=== PATIENT | female | born 1990 | race Caucasian/White ===

== ENCOUNTER 2020-04-12 13:13 | Outpatient (CLI) | payer MEDICAID, SELFPAY ==
--- NOTE | 2020-04-12 13:16 | MR_ITS ---
WS: [id number] MRI CERVICAL SPINE NONCONTRAST TECHNIQUE: Sagittal T1, T2 and STIR imaging. Axial T2, gradient, and fiesta imaging. CLINICAL INFORMATION: CERVICAL REGION RADICULOPATHY COMPARISON: MRI FINDINGS: Mild cervical curve. Straightening of the normal cervical lordosis. Cord signal is normal. C2-C3: Normal. C3-C4: Normal. C4-C5: Minimal disc bulging. Mild left and no significant right foraminal narrowing. Spinal canal is patent. C5-C6: Mild osteophytic ridging. Mild left and no significant right foraminal narrowing. Spinal canal is patent. C6-C7: No significant disc bulging. Mild facet arthropathy. Spinal canal and foramen are patent. C7-T1: Normal. T1-T2: Normal. Visualized brain stem structures: Normal. Prevertebral soft tissues: Normal. MR/MR cervical spin wo con* [id number] IMPRESSION: 1. Straightening of the normal cervical lordosis. Cord signal is normal. 2. Mild disc osteophytic ridging C4-C5 with mild left foraminal narrowing. 3. Mild left bony foraminal narrowing C5-C6. 4. Mild facet arthropathy right C6-C7. 5. No significant changes since December 29, 2017
--- NOTE | 2020-04-12 13:45 | XR_ITS ---
WS: [id number] CERVICAL SPINE TECHNIQUE: 3 views of the cervical spine CLINICAL INFORMATION: cervical pain COMPARISON: None. FINDINGS: Straightening of the normal cervical lordosis. Mild cervical curve convex left. Normal C1-C2 articula tion. Normal prevertebral soft tissues. XR/XR cervical spine 3V* [id number] IMPRESSION: Unremarkable cervical spine
== END 2020-04-12 13:14 | disposition home or self-care (01) ==
PROVIDERS: Family Provider Registered Nurse; PCP Registered Nurse; Visit Provider Registered Nurse
DX: M54.2 Cervicalgia (principal); M54.12 Radiculopathy, cervical region; M25.78 Osteophyte, vertebrae; M47.892 Other spondylosis, cervical region
CPT/HCPCS: 72040; 72141

== ENCOUNTER → 2020-04-16 09:31 | Outpatient (BNVA) | payer MEDICAID, SELFPAY | PROVIDERS: Family Provider Registered Nurse; PCP Registered Nurse; Referring Provider Registered Nurse; Visit Provider Anesthesiology Pain Medicine | DX: G89.29 Other chronic pain (principal); M79.18 Myalgia, other site; M47.812 Spondylosis without myelopathy or radiculopathy, cervical region; M54.12 Radiculopathy, cervical region; M48.02 Spinal stenosis, cervical region; R20.0 Anesthesia of skin; R20.2 Paresthesia of skin; F17.210 Nicotine dependence, cigarettes, uncomplicated; Z79.899 Other long term (current) drug therapy | CPT/HCPCS: 20553; 99204 ==

== ENCOUNTER → 2020-08-26 16:18 | Outpatient (BNVA) | payer MEDICAID, SELFPAY | PROVIDERS: Family Provider Registered Nurse; PCP Registered Nurse; Visit Provider Registered Nurse | DX: R10.2 Pelvic and perineal pain (principal) | CPT/HCPCS: 81000 ==

== ENCOUNTER → 2021-06-02 14:46 | Outpatient (BNVA) | payer MEDICAID, SELFPAY | PROVIDERS: Family Provider Registered Nurse; PCP Registered Nurse; Visit Provider Registered Nurse | DX: B37.81 Candidal esophagitis (principal); B37.0 Candidal stomatitis; K14.3 Hypertrophy of tongue papillae; F17.210 Nicotine dependence, cigarettes, uncomplicated | CPT/HCPCS: 87070; 87106 ==